=== PATIENT | female | born 1985 | race Caucasian/White ===

== ENCOUNTER 2024-04-22 11:30 | Outpatient (RCR) | payer BC, SELFPAY ==
[2024-04-12 11:37] VITALS: BP 155/85
[2024-04-12] MEDS: INJECTAFER 265 MG IV (11:49)
[2024-04-12 12:50] VITALS: BP 152/78
[2024-04-22 11:40] VITALS: BP 156/88
[2024-04-22] MEDS: INJECTAFER 265 MG IV (11:57)
== END 2024-04-25 10:04 | disposition home or self-care (01) ==
LOC: OID 11:30
PROVIDERS: ATTENDING PHYSICIAN Physician Assistant Medical
DX: D50.9 Iron deficiency anemia, unspecified (principal); R53.83 Other fatigue; E28.2 Polycystic ovarian syndrome
CPT/HCPCS: 96365; J1439

== ENCOUNTER 2025-02-17 12:19 | Emergency (ER) | payer BC, SELFPAY ==
[2025-02-17 12:26] VITALS: BP 187/106
[2025-02-17 12:57] LABS: Hematocrit 42.1 % (37.0-47.0); Hemoglobin 14.2 g/dL (12.0-16.0); Mean Corp Hgb Conc. 33.7 g/dL (33.0-37.0); Mean Corpuscular Volume 80.8 fL (81.0-99.0); Nucleated Red Blood Cells % 0 %; Platelet Count 256 10^3/uL (130-400); Red Cell Dist. Width 12.8 % (11.5-14.5)
[2025-02-17 13:16] LABS: ALT (SGPT) 19 U/L (0-35); AST (SGOT) 27 U/L (14-36); Albumin 4.4 g/dl (3.5-5.0); Alkaline Phosphatase 66 U/L (38-126); Blood Urea Nitrogen 10 mg/dl (7-17); Calcium 9.9 mg/dl (8.4-10.2); Carbon Dioxide 22 mmol/L (22-30); Chloride 107 mmol/L (98-107); Glucose 168 mg/dl (70-99); Potassium 4.1 mmol/L (3.5-5.1); Sodium 136 mmol/L (135-145); Total Protein 7.5 g/dl (6.3-8.2); eGFR > 60.00
[2025-02-17 13:28] LABS: Troponin I < 0.012 ng/ml
--- NOTE | 2025-02-17 15:42 | ED.GENMED ---
History of Present Illness
General
Chief Complaint: Chest Pain
Time Seen by Provider: 02/17/25 15:41
History of Present Illness
History of Present Illness:
TIME OF INITIAL EVALUATION
- 3:45 PM
REVIEW OF OLD RECORDS
- The patient has a history of high blood pressure, IBS, PCOS, iron deficiency anemia, and anxiety. I reviewed records, the patient was seen here with palpitations in 2021.
Note:
CHIEF COMPLAINT(S)
The patient presents with chest pain and back pain described as located between the spine and the shoulder blades.
HISTORY OF PRESENT ILLNESS
The patient is a 39-year-old female presenting with a primary complaint of chest pain described as 'skipping a beat' and associated back pain located between the spine and shoulder blades. The patient reported that the pain began today and prompted
this visit as it persisted despite typical anxiety-relieving strategies, which she previously utilized. The chest pain is both a sensation of palpitations and actual pain. There is no prior history of blood clots. The patient reported being on a
blood pressure medication regimen in the past prescribed by her chief radiologic technologist following a previous visit where she experienced stroke-level blood pressure. However, she has run out of this medication and is unsure of the name or dosage. She mentioned
that a previous prescription caused nightmares, although it was somewhat effective in blood pressure management. The current episode is not relieved by manual pressure on the chest, although it feels sore.
She also has a history of polycystic ovary syndrome (PCOS) and missed three consecutive days of control pills recently, resuming only two days ago after experiencing breakthrough bleeding. This interruption in control is recognized for
its potential to increase the risk of blood clots. The patient previously took as-needed anxiety medication but has run out for the past two weeks. The patients blood pressure is reported high upon this visit, but her cardiac blood work and
electrocardiogram showed no signs suggestive of a heart attack. Despite this, a computed tomography (CT) scan is proposed to exclude serious conditions such as a pulmonary embolism.
PHYSICAL EXAM
- General: Well appearing in no distress, elevated BMI
- HEENT: Moist oral mucosa
- Cardiovascular: No murmurs, normal heart rate, regular rhythm, No significant chest wall tenderness
- Pulmonary: No respiratory distress, breath sounds are clear and equal
- Abdomen: Soft with no peritoneal signs, no tenderness
- Neurologic: Excellent strength all extremities, no coordination deficits
- Psychiatric: Appropriate mental status, normal insight and judgement
- Extremities: Nontender, no edema, moves all extremities equally, no calf tenderness
- Skin: No rash, no lesions
CHRONIC MEDICAL CONDITIONS SIGNIFICANTLY AFFECTING CARE
- Hypertension
- Polycystic Ovary Syndrome (PCOS)
PLAN
- Administer a dose of Toradol to help with the patients pain.
- Conduct a computed tomography (CT) scan to rule out serious conditions such as pulmonary embolism.
- Review any available records to determine past medications, particularly those related to her blood pressure management.
- Discuss with the patient the importance of medication adherence, especially regarding her blood pressure and control medications.
DIFFERENTIAL DIAGNOSIS
The Differential Diagnosis includes, in no particular order and is not limited to:
1. Anxiety disorder
2. Pulmonary embolism
3. Chest wall pain
4. Cardiac arrhythmia
5. Gastroesophageal reflux disease (GERD)
6. Musculoskeletal pain
7. Panic attack
8. Myocardial infarction
9. Hypertensive crisis
10. Pericarditis
RADIOLOGY
- Chest CT obtained
EKG
- Sinus 98, nonspecific ST normality, borderline criteria for LAE
LABS
- CBC and chemistries unremarkable, troponin less than 0.012
UPDATE
- Toradol given for pain.
SUMMARY OF ENCOUNTER
The patient, a 39-year-old female, presented to the emergency department with complaints of chest pain described as a sensation of 'skipping a beat' and associated back pain located between the spine and shoulder blades. The chest pain persisted
despite her typical anxiety-relieving strategies. There was concern for possible serious conditions such as pulmonary embolism given her recent disruption in control use, history of high blood pressure, and current high blood pressure
measurement. A CT scan was performed, which ruled out pulmonary embolism and other critical conditions. Incidental findings included possible fatty liver and mild cardiomegaly. The patients pain improved with a dose of ketorolac (Toradol).
Considering these results and the patients stable condition, discharge was decided upon, with the addition of initiating a lower dose of losartan for blood pressure management and a prescription for lorazepam as needed for anxiety relief.
DISPOSITION
Discharge.
ASSESSMENT
The patients chest pain is most likely musculoskeletal in origin, given that serious conditions like pulmonary embolism were ruled out. The incidental finding of possible cardiomegaly on CT scan requires further evaluation. Fatty liver was noted but
is not contributing to present symptoms. High blood pressure needs management to prevent long-term cardiovascular risks.
EMERGENCY TREATMENTS ADMINISTERED
A dose of ketorolac (Toradol) for pain relief. Lando much improved on reassessment.
PLAN
1. Initiate losartan 25 mg daily for blood pressure management.
2. Provide lorazepam 0.5 mg for anxiety as needed.
3. Discharge with close outpatient follow-up.
4. Recommend follow-up with a chief radiologic technologist for further evaluation, particularly regarding the possible cardiomegaly.
5. Advise the patient to manage blood pressure actively and revisit the use of the blood pressure cuff, potentially utilizing pharmacy resources for monitoring.
INDEPENDENT REVIEW OF LABS AND INTERPRETATION OF TESTS
- My independent interpretation of the CT scan shows no signs of pulmonary embolism, aortic aneurysm, or dissection. Possible mild cardiomegaly is noted, which needs further evaluation with echocardiography. Incidentally noted fatty liver likely
unrelated to current symptoms.
PATIENT EDUCATION AND COUNSELING
The patient was educated on the importance of managing high blood pressure to reduce the risks of stroke and heart attack. Information was provided regarding the findings of fatty liver and that it generally does not contribute to current symptoms.
Advised on lifestyle modifications and medication adherence for hypertension management.
FOLLOW-UP INSTRUCTIONS
The patient is advised to follow up with a chief radiologic technologist for further evaluation of potential cardiomegaly. Monitoring and management of blood pressure are recommended, with re-evaluation of her blood pressure monitoring device.
MEDICATION RECONCILIATION
1. Ketorolac (Toradol) administered for pain relief during the visit.
2. Losartan 25 mg prescribed for blood pressure management.
3. Lorazepam 0.5 mg as needed for anxiety.
MEDICAL DECISION MAKING
- Complexity of Data Reviewed: Chronic conditions affecting care include hypertension and PCOS. DDx included anxiety disorder, pulmonary embolism, cardiac arrhythmia, gastroesophageal reflux disease (GERD), musculoskeletal pain, panic attack,
hypertensive crisis, pericarditis, and myocardial infarction.
- Data:
Category 1
- Clinical records reviewed for hypertension management history.
- My independent interpretation of the CT scan indicated no pulmonary embolism but suggested mild cardiomegaly.
Category 3
- Discussed management with the patient regarding the initiation of losartan and the importance of follow-up care.
- Risk:
Consideration of Admission/Observation: Escalation of care, including admission/observation, was considered given the complexity and risk of the patients presenting complaint, exam findings, and underlying comorbidities. However, ultimately, I feel
the patient is safe for outpatient management with close follow-up. Reasoning: Work-up reassuring, does not reveal any acute life/organ-threatening processes, patients symptoms well controlled upon reevaluation, reexamination is reassuring, vitals
are stable, patient agreeable with discharge, and reliable for follow-up.
DIAGNOSIS
1. Musculoskeletal chest pain (ICD-10: R07.9)
2. Hypertension (ICD-10: I10)
3. Anxiety disorder (ICD-10: F41.9)
4. Fatty liver (ICD-10: K76.0)
5. Possible cardiomegaly (ICD-10: I51.7)
Past History
Past History
ED Past Medical History: HTN, Psychiatric (Anxiety), Other (PCO S), Other (Sinusitis) and Other (Ovarian cysts)
ED Past Surgical History: Appendectomy
Patient has exhibited threatening behavior?: No
PSI?: No
Social History
Tobacco: Non-smoker
Alcohol: None
Personal:
Living: with family
Employment: Employed
Family History
Family History: Other (Noncontributory)
Phy Exam
Physical Exam
Physical Exam:
See HPI
Scores
Heart Score for Chest Pain Patients
STEMI patient?: Not applicable
Course
Orders/Labs/Results
Orders:
Orders
02/17/25
ECG [Electrocardiogram (*1)] Urgent
Reason for Study: Chest Pain
02/17/25 12:20
EKG- Treatment ONCE
02/17/25 12:46
Complete Blood Count/With Diff Urgent
Comprehensive Metabolic Panel Urgent
HCG, Serum Qualitative Screen Urgent
Comment: ADD ON
Troponin I Urgent
02/17/25 16:03
Add On- LAB Urgent
Tests Added?: serum hcg screen
CT Chest PE Study Urgent
Comment:
Reason For Exam: back pain chest pain on ocp
02/17/25 16:04
Ketorolac [Toradol] 15 mg IV NOW STA
Abnormal Lab Results
02/17/25
12:46
MCV 80.8 L fL
(81.0-99.0)
MPV 11.2 H fL
(7.4-10.4)
Creatinine 0.5 L mg/dL
(0.6-1.0)
Glucose 168 H mg/dl
(70-99)
02/17/25 12:46
02/17/25 12:46
Vital Signs
Initial and Last Documented VS:
Initial Vital Signs
Temp Pulse Resp BP Pulse Ox
36.6 C 106 20 187/106 98
02/17/25 12:26 02/17/25 12:26 02/17/25 12:26 02/17/25 12:26 02/17/25 12:26
Last Documented Vital Signs
Temp Pulse Resp BP Pulse Ox
36.6 C 78 16 139/92 97
02/17/25 12:26 02/17/25 18:00 02/17/25 18:03 02/17/25 18:00 02/17/25 18:00
*Pulse Oximetry
SaO2: 98
Oxygen Mode of Delivery: Room air
Patient hypoxic: not evaluated
*Critical Care Note
Total Time (30-74mins, 75-104mins- exclusive of procedures): Not Applicable
ED Attending Note
-
Portions of this chart may have been created with voice recognition software.� Occasional wrong word or��sound alike� substitutions may have occurred due to the inherent limitations of voice recognition software.
Discharge Plan
Departure
Patient Disposition: Home (Routine Discharge)
Date of Disposition: 02/17/25
Time of Disposition: 19:12
Patient with high blood pressure during this ER visit?: Yes
Discharge Problem:
Chest pain
Instructions: Chest Pain NON-[facility]P Adon Follow Up
Prescriptions:
New
losartan 50 mg tablet
50 mg PO DAILY Qty: 30 0RF
lorazepam 0.5 mg tablet
0.5 mg PO HS PRN (Reason: anxiety) Qty: 10 0RF
No Action
Control
1 tab PO DAILY
ibuprofen 600 MG tablet
600 mg PO Q6HPRN PRN (Reason: cramps) Qty: 20 0RF
diltiazem HCl [Cardizem SR] 120 mg Capsule,Extended Release 12 Hr
120 mg PO BID
fluoxetine 40 mg Capsule
40 mg PO DAILY
Referrals:
Sarita Simon PA [Family Provider, Family Practice]
Activity Restrictions/Additional Instructions:
Follow-up with your chief radiologic technologist. I am sending a prescription for losartan as your blood pressure has been rather high here (187/106 and then 139/92). Cardiac blood work and EKG showed no sign of heart attack. Other basic labs are normal. Liver
function tests are normal. On the CAT scan of the chest there is no sign of any blood clot, mild cardiomegaly was noted�could consider talking to your chief radiologic technologist about maybe doing an echo if you have not had it in the past.. Incidentally the
right side of your diaphragm is higher than the left (this is just incidentally found and has nothing to do with your pain). The radiologist did note a fatty liver but again your liver numbers are normal.
Interventions
Interventions:
*Risk Screen - Suicide Last Done: 02/17/25 12:26
*General Assessment Last Done: 02/17/25 12:26
*Neglect/Abuse Screening Last Done: 02/17/25 12:26
*ED- Fall Risk Assessment Last Done: 02/17/25 15:51
*ED COVID-19 Vaccine History Last Done: 02/17/25 15:51
ED- Cardiac Assessment Last Done: 02/17/25 15:51
Discharge Date and Time
Print Language: [id number]
[2025-02-17 15:53] VITALS: BP 173/82
[2025-02-17 16:00] VITALS: BP 189/83
[2025-02-17 16:36] LABS: HCG, Serum Qualitative Screen Negative
[2025-02-17] MEDS: TORADOL 15 MG IV (16:36)
[2025-02-17 17:00] VITALS: BP 165/87
[2025-02-17 18:00] VITALS: BP 139/92
[2025-02-17 19:30] VITALS: BP 138/88
== END 2025-02-17 19:31 | disposition home or self-care (01) ==
LOC: EMR 12:19
PROVIDERS: Emergency Medicine; EMERGENCY PHYSICIAN Emergency Medicine; FAMILY PHYSICIAN Physician Assistant Medical
DX: R07.89 Other chest pain (principal); I10 Essential (primary) hypertension; E28.2 Polycystic ovarian syndrome; Z79.899 Other long term (current) drug therapy
CPT/HCPCS: 99284; 96374; 71275; 80053; 84484; 84703; 85025; 93005; Q9967